=== PATIENT | female | born 1930 | race Caucasian/White ===

== ENCOUNTER 2016-10-15 09:39 | Emergency (ER) | payer OTHER ==
--- NOTE | 2016-10-15 14:29 | ED ORDER SUMMARY ---
..... Patient: JESSA ADLER OrderSheet [facility] VisitID: [id number] [place] [address] 85y, F Registration Date/Time: 10/15/2016 ORDER SHEET Weight: 46.8 kg (measured) Allergies: No Known Drug Allergy GENERAL ORDERS: CBC w Diff Urgent (10:10/15/2016 Sanket Latif) (Ack 10:36 TBergley) (10:36 TBergley) CMP Urgent (10:10/15/2016 Sanket Latif) (Ack 10:36 TBergley) (10:36 TBergley) UA-Culture if indicated Urgent (:10/15/2016 Sanket Latif) (Ack 10:36 TBergley) (10:36 TBergley) Amylase Urgent (10:10/15/2016 Sanket Latif) (Ack 10:36 TBergley) (10:36 TBergley) Lipase Urgent (10:10/15/2016 Sanket Latif) (Ack 10:36 TBergley) (10:36 TBergley) MEDICATION ORDERS: IV FLUIDS: IV NS : initial bolus none -, then 1000 mL/hr for X1 (NOW) (10:30 10/15/2016 Sanket Latif) (10:49 LSullivan R.N.) Famotidine IV 20 mg/50mL (NOW) (10:10/15/2016 Sanket Latif) (10:49 LSullivan R.N.) Demerol IV 25 mg (HIGH ALERT MEDICATION, NOW) (12:37 10/15/2016 Sanket Latif) (12:51 LSullivan R.N.) Zofran IV 4 mg (NOW) (12:37 10/15/2016 Sanket Latif) (12:50 LSullivan R.N.) ORDER SHEET NOTES: This document has not been locked and should not be saved in the medical record.
--- NOTE | 2016-10-15 14:29 | ED CLINICAL REPORT ---
Clinical Report - Physicians/Mid Levels [facility] [address] [place] [address] 10/15/2016 9:40 Patient: JESSA ADLER *This is a preliminary document and is subject to change Time Seen: 09:57; initial patient contact. Arrived- By private vehicle. Historian- patient. HISTORY OF PRESENT ILLNESS Chief Complaint: ABDOMINAL PAIN. At its maximum, severity described as moderate. When seen in the E.D., severity described as moderate. This started about 5 days ago and is still present. It is described as sharp and it is described as located in the upper abdomen and radiating to the upper back. The patient has had nausea, loss of appetite and vomiting. No diarrhea. Similar symptoms previously: Many times. Recent medical care: Not recently seen/assessed. REVIEW OF SYSTEMS No constipation, pain with urination, urinary frequency, fever or chills. PAST HISTORY Abdominal Pain. Pancreatitis. Hypertension. Atrial Fibrillation. SURGERIES: Femoral vein bypass. Tonsillectomy. SOCIAL HISTORY Current every day smoker. No alcohol use. ADDITIONAL NOTES The nursing notes have been reviewed with agreement regarding the chief complaint, PMH and patient medications and allergies. PHYSICAL EXAM Vital Signs: 10/15/2016 10:01 BP: 157/81. HR: 104. RR: 19. O2 saturation: 99%. Temp: 97.8 F. Pain level now: 8/10. Have been reviewed. Hypertensive. Tachycardic. Respiratory rate normal. Temperature normal. Oxygen saturation normal. Appearance: Alert. Oriented X3. No acute distress. Eyes: No scleral icterus. ENT: Dry mucous membranes present. CVS: Normal heart rate and rhythm. Heart sounds normal. Respiratory: No respiratory distress. Breath sounds normal. Abdomen: Soft. Moderate tenderness in the upper abdomen with guarding present. No rebound tenderness or Dorsey's sign present. Bowel sounds normal. No organomegaly. No mass. Back: Normal inspection. No CVA tenderness. Skin: Skin warm and dry. Normal skin color. No rash. Extremities: No lower extremity edema. Neuro: Oriented X 3. LABS, X-RAYS, AND EKG Laboratory Tests: UA-Culture if indicated: (ZORAIDA: 10/15/2016 10:24) ( [facility] 10/15/2016 11:08) Final results Test Result Flag Units (Reference) URINE COLOR YELLOW URINE APPEARANCE CLEAR URINE GLUCOSE NEGATIVE (NEGATIVE) URINE BILIRUBIN NEGATIVE (NEGATIVE) URINE KETONE NEGATIVE (NEGATIVE) URINE SPECIFIC GRAVITY 1.020 (1.010-1.030) URINE PH 5.5 (5.0-8.0) URINE PROTEIN 1+ (NEGATIVE) URINE UROBILINOGEN 0.2 EU/dL (0.2-1.0) URINE NITRITE NEGATIVE (NEGATIVE) URINE BLOOD TRACE-INTACT (NEGATIVE) URINE LEUK ESTERASE TRACE (NEGATIVE) URINE RBC 1-3 rbc/hpf (0-1) URINE WBC 0-1 wbc/hpf (0-1) URINE EPITHELIAL CELLS 1-3 EPI/hpf (0-5) URINE BACTERIA NONE SEEN (NONE SEEN) URINE COMMENT CULTURE INDICATED This is a corrected result 10/15/16 1108:URINE COMMENT previously reported as: CULT NOT INDICATEDURINE CULTURES ARE SET-UP BASED ON THE FOLLOWING CRITERIA:POSITIVE NITRITEPOSITIVE LEUKOCYTE ESTERASEGREATER THAN 10 WHITE BLOOD CELLSMODERATE (2+) OR GREATER BACTERIA CBC w Diff: (ZORAIDA: 10/15/2016 10:24) ( [facility] 10/15/2016 10:42) Final results Test Result Flag Units (Reference) WHITE BLOOD COUNT 13.6 H K/uL (4.5-11.5) RED BLOOD COUNT 5.09 M/uL (4.00-5.20) HEMOGLOBIN 15.2 gm/dL (12.0-16.0) HEMATOCRIT 43.7 % (36.0-46.0) MEAN CELL VOLUME 86 fL (80-100) MEAN CORPUSCULAR HGB 30 pg (26-34) MEAN CORPUSCULAR HGB CONC 35 g/dL (31-37) RED CELL DISTRIBUTION WIDTH 15.2 H % (11.6-14.8) PLATELET COUNT 221 K/uL (150-400) NEUTROPHIL % 82.3 H % (50-75) LYMPH % 11.4 L % (25-40) MONO % 5.8 % (3-14) EOSINOPHIL % 0.2 % (0-4) BASOPHIL % 0.3 % (0-2) CMP: (ZORAIDA: 10/15/2016 10:24) ( MsgRcvd 10/15/2016 10:52) Final results Test Result Flag Units (Reference) GLUCOSE 115 H mg/dL (70-110) BUN 25 H mg/dL (7-18) CREATININE 0.8 mg/dL (0.6-1.3) Estimated GFR >60 mL/min Estimated GFR- >60 mL/min Note: Persistent reduction over 3 months in eGFR<60 mL/min/1.73 m2 defines CKD. Patients with eGFR values>=60 mL/min/1.73 m2 may also have CKD if evidence ofpersistent proteinuria. Additional information may be foundat [email or web address].org. SODIUM 137 mmol/L (136-145) POTASSIUM 3.6 mmol/L (3.5-5.1) CHLORIDE 98 mmol/L (98-107) CARBON DIOXIDE 25 mmol/L (21-32) CALCIUM 9.5 mg/dL (8.5-10.1) TOTAL PROTEIN 8.2 g/dL (6.4-8.2) ALBUMIN 4.2 g/dL (3.3-5.0) BILIRUBIN, TOTAL 0.5 mg/dL (0.0-1.0) ALKALINE PHOSPHATASE 97 U/L (46-116) AST (SGOT) 21 U/L (15-37) ALT (SGPT) 21 U/L (12-78) LIPASE 382 U/L (73-393) AMYLASE 67 U/L (25-115) . PROGRESS AND PROCEDURES Discussed case with health care provider (Dr. Lopez at [facility] ER. Will transfer due to the fact LFT's, Amylase, and Lipase are normal, but WBC 13.6 w/ L shift.). Health care provider will see patient in ED. Disposition: Benefits, risks and alternatives to transfer explained to patient. Transferred to [facility]. CLINICAL IMPRESSION Acute epigastric abdominal pain of unknown cause. Mild leukocytosis. Armando Gonzalez Dr.
--- NOTE | 2016-10-15 14:29 | ED NURSING NOTES ---
Clinical Report - [facility]es [facility] [place] [address] 10/15/2016 9:40 Patient: JESSA ADLER TRIAGE Triage time 10:01. Acuity: LEVEL 3. Chief Complaint: ABDOMINAL PAIN, NAUSEA, VOMITING and DIARRHEA and (Pt thinks it's her pancreatitis acting up). Alert. --10:13 Petrona Prescott R.N. 10:01 10/15/16. BP: 157/81. HR: 104. RR: 19. O2 saturation: 99%. Temp: 97.8 F. Pain level now: 03/18. --10:13 Petrona Prescott R.N. Weight: 46.8 kg measured. Height/Length: 64 inches Per Patient. BMI: 17.7. --10:02 Petrona Prescott R.N. Medications Oxycodone-Acetaminophen Oral 5/325 mg, 3x a day as needed. --10:05 Petrona Prescott R.N. Lomotil Oral, as needed. --10:05 Petrona Prescott R.N. Digoxin Oral 0.25 mg, daily. --10:06 Petrona Prescott R.N. Lisinopril Oral. Lovastatin Oral. --10:06 Petrona Prescott R.N. Metoprolol Tartrate Oral. --10:06 Petrona Prescott R.N. Allergies No Known Drug Allergy. --10:07 Petrona Prescott R.N. History Arrived by private vehicle. Historian: patient. Accompanied by family and daughter. Primary physician (Clifford). Onset. (5 days ago). PAST MEDICAL HX: ( weight loss of 10 lbs over past 2 years). SOCIAL HX: Heavy tobacco smoker (cigarette)- less than 1 pack per day. No alcohol use or drug use. No recent travel. SELF HARM ASSESSMENT: A self harm assessment was performed. The patient answered "yes" to the question "Have you recently felt down, depressed, or hopeless?". FUNCTIONAL ASSESSMENT: Functional assessment: no impairments noted. ABUSE ASSESSMENT: Abuse assessment: ("yes") The patient was asked "Do you feel safe in your home?". --10:13 Petrona Prescott R.N. PROBLEMS: Abdominal Pain. Pancreatitis. Hypertension. --10:09 Petrona Prescott R.N. Atrial Fibrillation. --12:11 Petrona Prescott R.N. ADDITIONAL SURGERIES: Femoral vein bypass. Tonsillectomy. --10:10 Petrona Prescott R.N. Interventions ID band on patient. To room. --10:13 Petrona Prescott R.N. PHYSICAL ASSESSMENT 10:13 10/15/16. Patient gowned. GENERAL / NEURO / PSYCH: Alert. Oriented X 4. RESPIRATORY: Respirations not labored. Breath sounds within normal limits. --10:13 Petrona Prescott R.N. NURSING PROGRESS NOTES 10:10/15/16. Head of bed elevated. Patient identifiers checked. Call light placed in reach. Bed placed in lowest position. Patient ready for evaluation- chart flagged. --10:13 Petrona Prescott R.N. 10:34 10/15/2016 Site #1 started via IV in the right forearm with an 20g angiocath, with aseptic technique and good blood return; one attempt. Blood drawn: rainbow set. Labeled in the presence of the patient and sent to the lab. --10:49 Petrona Prescott R.N. 10:49 10/15/2016 Started bag #1 1000 mL IV Fluids IV NS (Saline); at 1000 mL/hr via site #1 via IV pump. Confirmed 5 rights. IV patency established. IV site checked: no pain, redness, or swelling. IV flushed thoroughly pre- and post-medication administration. --10:49 Petrona Prescott R.N. 10:49 10/15/2016 Started 20 mg of Famotidine IVPB in bag #1 100 mL; at 100 mL/hr over 30 minute(s) via site #1; Confirmed 5 rights. --10:49 Petrona Prescott R.N. 12:07 10/15/2016 Famotidine IVPB Discontinued: bag #1 completed. Total amount infused: 50 mL. IV patency established. IV site checked: no pain, redness, or swelling. IV flushed thoroughly. --12:07 Kathy Jiménez R.N. 12:45 10/15/2016 Zofran (Ondansetron HCl) IVP 4 mg given over 1 minute(s) via site #1. Allergies verified and confirmed 5 rights. --12:50 Petrona Prescott R.N. 12:51 10/15/2016 Demerol (Meperidine HCl) IVP 25 mg given over 2 minute(s) via site #1. Allergies verified and confirmed 5 rights. --12:51 Petrona Prescott R.N. 14:11 10/15/16. ( Pt ambulating in room, has gotten dressed.). --14:11 Petrona Prescott R.N. 12:00 10/15/16. BP: 161/79. HR: 85. RR: 18. O2 saturation: 100%. Pain level now: 2/10. --15:06 Petrona Prescott R.N. 12:30 10/15/16. BP: 158/86. HR: 90. RR: 18. O2 saturation: 100%. --15:06 Petrona Prescott R.N. 15:06 10/15/16. BP: 152/73. HR: 83. RR: 18. O2 saturation: 100%. Pain level now: 0/10. --15:07 Petrona Prescott R.N. 12:40 10/15/2016 IV Fluids IV NS Discontinued: bag #1 completed. Total amount infused: 1000 mL. IV patency established. IV site checked: no pain, redness, or swelling. IV flushed thoroughly. --16:16 Petrona Prescott R.N. 15:40 10/15/2016 Site #1 removed upon discharge. Bandage applied. --15:56 Petrona Prescott R.N. DISPOSITION / DISCHARGE Departure time: 1540. The patient left the Emergency Department against medical advice and without completion of treatment. The patient appears to be alert and oriented x4. She stated is leaving the ED due to personal reasons and the long waiting time. Prior to leaving the ED, she was advised to stay for completion of treatment. She was informed of the risks of leaving and verbalized understanding of these risks. Patient signed form prior to leaving. She left the Emergency Department via private vehicle. ( Pt tired of waiting since our CT is down, did not want ambulance transfer to [facility] for scan, or transfer. Pt cooperative, but anxious about paying for an ambulance "just to go to [facility]". Calling daughter to get a ride home, encouraged pt to have daughter take pt to [facility] ER for further treatment and CT. She understands.). --15:55 Petrona Prescott R.N. Locked/Released at 10/15/2016 16:16 by Petrona Prescott R.N.
--- NOTE | 2016-10-15 14:29 | ED ORDER SUMMARY ---
..... Patient: JESSA ADLER OrderSheet [facility] VisitID: [id number] [place] [address] 85y, F Registration Date/Time: 10/15/2016 ORDER SHEET Weight: 46.8 kg (measured) Allergies: No Known Drug Allergy GENERAL ORDERS: CBC w Diff Urgent (10:10/15/2016 Sanket Latif) (Ack 10:36 TBergley) (10:36 TBergley) CMP Urgent (10:10/15/2016 Sanket Latif) (Ack 10:36 TBergley) (10:36 TBergley) UA-Culture if indicated Urgent (:10/15/2016 Sanket Latif) (Ack 10:36 TBergley) (10:36 TBergley) Amylase Urgent (10:10/15/2016 Sanket Latif) (Ack 10:36 TBergley) (10:36 TBergley) Lipase Urgent (10:10/15/2016 Sanket Latif) (Ack 10:36 TBergley) (10:36 TBergley) MEDICATION ORDERS: IV FLUIDS: IV NS : initial bolus none -, then 1000 mL/hr for X1 (NOW) (10:30 10/15/2016 Sanket Latif) (10:49 LSullivan R.N.) Famotidine IV 20 mg/50mL (NOW) (10:10/15/2016 Sanket Latif) (10:49 LSullivan R.N.) Demerol IV 25 mg (HIGH ALERT MEDICATION, NOW) (12:37 10/15/2016 Sanket Latif) (12:51 LSullivan R.N.) Zofran IV 4 mg (NOW) (12:37 10/15/2016 Sanket Latif) (12:50 LSullivan R.N.) ORDER SHEET NOTES: This document has not been locked and should not be saved in the medical record.
--- NOTE | 2016-10-15 22:06 | ED MED RECONCILIATION SUMMARY ---
Patient: JESSA ADLER Medication Reconciliation Report [facility] VisitID: [id number] [place] [address] 85y, F Registration Date/Time: 10/15/2016 Weight: 46.8 kg Height/Length: 64 in. BMI: 17.7 ALLERGIES: No Known Drug Allergy The patient's Home Medications are listed below: THE FOLLOWING MEDICATIONS NEED TO BE RECONCILED: Digoxin Oral 0.25 mg, daily Lisinopril Oral Lomotil Oral Lovastatin Oral Metoprolol Tartrate Oral Oxycodone-Acetaminophen Oral 5/325 mg, 3x a day The source(s) of the original Home Medication information: Not obtained. The following Medications were given to the patient in the Emergency Department: IV NS IV Fluids bolus 0, then 1000 mL/hr, administered: 10/15/2016 10:49:00 AM Famotidine [IVPB] IVPB bolus 0, then 20 mg 100 mL/hr, administered: 10/15/2016 10:49:00 AM Zofran [IVP] IVP 4 mg, administered: 10/15/2016 12:45:00 PM Demerol [IVP] IVP 25 mg, administered: 10/15/2016 12:51:00 PM The following Medications were prescribed to the patient: None.
--- NOTE | 2016-10-15 22:06 | ED MAR SUMMARY ---
..... Medication Administration Record [facility] [address] [place] [address] Patient: JESSA ADLER Visit ID: [id number] 85y, F Weight: 46.8 kg Height/Length: 64 in BMI: 17.7 ALLERGIES: No Known Drug Allergy Start 10:49 10/15/2016 Petrona Prescott R.N., Stop 12:40 10/15/2016 Petrona Prescott R.N. Medication Administered: IV NS (SALINE), Dose: IV Fluids, Rate: 1000 mL/hr, Dispensed: 1000 mL bag, Site: #1 right forearm. Medication Ordered: IV NS : initial bolus none -, then 1000 mL/hr for X1 (NOW). Start 10:49 10/15/2016 Petrona Prescott R.N., Stop 12:07 10/15/2016 Kathy Jiménez R.N. Medication Administered: FAMOTIDINE [IVPB], Dose: 20 mg IVPB over 30 minute(s), Rate: 100 mL/hr, Dispensed: 100 mL bag, Site: #1 right forearm. Medication Ordered: Famotidine IV 20 mg/50mL (NOW). Given 12:45 10/15/2016 Petrona Prescott R.N. Medication Administered: ZOFRAN [IVP] (ONDANSETRON HCL), Dose: 4 mg IVP over 1 minute(s), Site: #1 right forearm. Medication Ordered: Zofran IV 4 mg (NOW). Given 12:51 10/15/2016 Petrona Prescott R.N. Medication Administered: DEMEROL [IVP] (MEPERIDINE HCL), Dose: 25 mg IVP over 2 minute(s), Site: #1 right forearm. Medication Ordered: Demerol IV 25 mg (HIGH ALERT MEDICATION, NOW).
--- NOTE | 2016-10-15 22:06 | ED DISCHARGE INSTRUCTIONS ---
Patient: JESSA ADLER ANN General Instructions [facility] VisitID: [id number] [address] [place] [address] 85y, F Registration Date/Time: 10/15/2016 Acute epigastric abdominal pain of unknown cause. Mild leukocytosis. (Electronically signed by Armando Gonzalez Dr. 10/15/2016 22:06)
--- NOTE | 2016-10-15 22:06 | ED MED RECONCILIATION SUMMARY ---
Patient: JESSA ADLER Medication Reconciliation Report [facility] VisitID: [id number] [place] [address] 85y, F Registration Date/Time: 10/15/2016 Weight: 46.8 kg Height/Length: 64 in. BMI: 17.7 ALLERGIES: No Known Drug Allergy The patient's Home Medications are listed below: THE FOLLOWING MEDICATIONS NEED TO BE RECONCILED: Digoxin Oral 0.25 mg, daily Lisinopril Oral Lomotil Oral Lovastatin Oral Metoprolol Tartrate Oral Oxycodone-Acetaminophen Oral 5/325 mg, 3x a day The source(s) of the original Home Medication information: Not obtained. The following Medications were given to the patient in the Emergency Department: IV NS IV Fluids bolus 0, then 1000 mL/hr, administered: 10/15/2016 10:49:00 AM Famotidine [IVPB] IVPB bolus 0, then 20 mg 100 mL/hr, administered: 10/15/2016 10:49:00 AM Zofran [IVP] IVP 4 mg, administered: 10/15/2016 12:45:00 PM Demerol [IVP] IVP 25 mg, administered: 10/15/2016 12:51:00 PM The following Medications were prescribed to the patient: None.
--- NOTE | 2016-10-15 22:06 | ED DISCHARGE INSTRUCTIONS ---
Patient: JESSA ADLER ANN General Instructions [facility] VisitID: [id number] [address] [place] [address] 85y, F Registration Date/Time: 10/15/2016 Acute epigastric abdominal pain of unknown cause. Mild leukocytosis. (Electronically signed by Armando Gonzalez Dr. 10/15/2016 22:06)
--- NOTE | 2016-10-15 22:06 | ED MAR SUMMARY ---
..... Medication Administration Record [facility] [address] [place] [address] Patient: JESSA ADLER Visit ID: [id number] 85y, F Weight: 46.8 kg Height/Length: 64 in BMI: 17.7 ALLERGIES: No Known Drug Allergy Start 10:49 10/15/2016 Petrona Prescott R.N., Stop 12:40 10/15/2016 Petrona Prescott R.N. Medication Administered: IV NS (SALINE), Dose: IV Fluids, Rate: 1000 mL/hr, Dispensed: 1000 mL bag, Site: #1 right forearm. Medication Ordered: IV NS : initial bolus none -, then 1000 mL/hr for X1 (NOW). Start 10:49 10/15/2016 Petrona Prescott R.N., Stop 12:07 10/15/2016 Kathy Jiménez R.N. Medication Administered: FAMOTIDINE [IVPB], Dose: 20 mg IVPB over 30 minute(s), Rate: 100 mL/hr, Dispensed: 100 mL bag, Site: #1 right forearm. Medication Ordered: Famotidine IV 20 mg/50mL (NOW). Given 12:45 10/15/2016 Petrona Prescott R.N. Medication Administered: ZOFRAN [IVP] (ONDANSETRON HCL), Dose: 4 mg IVP over 1 minute(s), Site: #1 right forearm. Medication Ordered: Zofran IV 4 mg (NOW). Given 12:51 10/15/2016 Petrona Prescott R.N. Medication Administered: DEMEROL [IVP] (MEPERIDINE HCL), Dose: 25 mg IVP over 2 minute(s), Site: #1 right forearm. Medication Ordered: Demerol IV 25 mg (HIGH ALERT MEDICATION, NOW).
== END 2016-10-15 15:40 | disposition left against medical advice (07) ==
LOC: ED SRH 09:39
DX: R10.13 Epigastric pain (principal); D72.829 Elevated white blood cell count, unspecified; I10 Essential (primary) hypertension; F17.210 Nicotine dependence, cigarettes, uncomplicated; Z79.899 Other long term (current) drug therapy
CPT/HCPCS: 90004; 90100; 90469; 92235; 92530; 95059

== ENCOUNTER 2016-11-15 09:52 | Emergency (ER) | payer OTHER ==
--- NOTE | 2016-11-15 13:01 | DIAGNOSTIC IMAGING REPORT ---
PROCEDURE: CT ABDOMEN/PELVIS W/O CONTRAST INDICATION: DIARRHEA, nausea, vomiting, low abdominal pain, leukocytosis. TECHNIQUE: Axial CT images were obtained through the abdomen and pelvis without IV contrast. Coronal and sagittal reformations were created. COMPARISON: 04/20/2016 FINDINGS: Clear lung bases. Normal sized heart. Moderate mitral annular and coronary artery calcification. Very small hiatal hernia. Tiny central cysts, and punctate granuloma in the right lobe of the liver. There is new perihepatic ascites towards the dome. There are punctate calcifications in the head and uncinate process of the diminutive pancreas consistent with chronic pancreatitis. There is heavy atherosclerosis of the abdominal aorta and its branches which probably has caused right renal atrophy. There is a left renal cyst. No collecting system calcifications or hydronephrosis. There is an air-fluid level in an otherwise normal appearing stomach. The distal duodenum and proximal jejunum demonstrates diffuse circumferential mural thickening. There are no pathologically dilated small bowel loops, but small and large bowel is diffusely fluid-filled containing air fluid levels. Small amount of free fluid layers dependently in the pelvis. The appendix is present in normal-caliber. No discrete focus of inflammation. No discrete transition point to suggest obstruction. There is moderate mesenteric congestion in the right lower quadrant. The gallbladder, adrenal glands, and spleen appear normal. 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 The uterus is retroverted. The bladder is decompressed. No bulky adenopathy or suspicious pelvic mass. Osseous structures are intact. IMPRESSION: 1. Liquid stool throughout small and large bowel loops. A few of the more proximal small bowel loops demonstrate wall thickening. The right lower quadrant mesentery appears congested and there is free pelvic and perihepatic fluid. Findings suggest severe gastroenteritis, likely infectious/inflammatory, although given heavy atherosclerosis, ischemic bowel is possible, less likely given nondilated bowel loops. No evidence for bowel obstruction. 2. Evidence of chronic pancreatitis. No acute pancreatitis. 3. 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 4. Discussed with Dr. Maki in the emergency room. All CT scans at this facility use dose modulation, iterative reconstruction, and/or weight-based dosing when appropriate to reduce radiation dose to as low as reasonably achievable.
--- NOTE | 2016-11-15 13:03 | DIAGNOSTIC IMAGING REPORT ---
PROCEDURE: XR HAND 3 OR 4 VIEWS - LEFT INDICATION: TRAUMA/INJURY TECHNIQUE: Four views of the left hand. COMPARISON: None. FINDINGS: Periarticular osteopenia. Minimally displaced longitudinally oriented oblique fracture of the third metacarpal diaphysis. There is medial subluxation at the second DIP joint with joint space loss suggestive of chronic arthritic change. No unusual soft tissue calcifications or radiodense foreign bodies. IMPRESSION: 1. Minimally displaced third metacarpal fracture. 2. Periarticular osteopenia. 3. 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 Correlate clinically with loss of range of motion.
--- NOTE | 2016-11-15 14:02 | ED ORDER SUMMARY ---
..... Patient: JESSA ADLER OrderSheet [facility] VisitID: [id number] Sharon Brannon [place], [place] [id number] 86y, F Registration Date/Time: 11/15/2016 ORDER SHEET Weight: 43.0 kg (stated) Allergies: No Known Drug Allergy GENERAL ORDERS: Gray Tender (Continuous) (a fib) (10:11/15/2016 Edmar Latif) (Ack 10:12 TBergley) (10:15 SReitz R.N.) CBC w Diff Urgent (10:11/15/2016 Edmar Latif) (Ack 10:11 TBergley) (11:10 RMarsden R.N.) CMP Urgent (10:11/15/2016 Edmar Latif) (Ack 10:11 TBergley) (11:10 RMarsden R.N.) UA-Culture if indicated Urgent (10:11/15/2016 Edmar Latif) (Ack 10:11 TBergley) (11:10 RMarsden R.N.) PT with INR Urgent (10:11/15/2016 Edmar Latif) (Ack 10:11 TBergley) (11:10 RMarsden R.N.) TSH Urgent (10:11/15/2016 Edmar Latif) (Ack 10:11 TBergley) (11:10 RMarsden R.N.) Pulse oximeter (10:11/15/2016 Edmar Latif) (Ack 10:12 TBergley) (10:15 SReitz R.N.) Hand 3 or 4V Left Urgent (10:11/15/2016 Edmar Latif) (Ack 10:16 TBergley) (12:04 Kenisha) CT Abd/Pel w Cont (No) (N/A) (hx pancreatitis) Urgent (10:14 11/15/2016 Edmar Latif) (Ack 10:16 TBergley) (Cancelled: Duplicate Order11:23 TBergley) Lipase Urgent (10:11/15/2016 Edmar Latif) (Ack 10:16 TBergley) (11:10 RMarsden R.N.) Magnesium Urgent (10:15 11/15/2016 Edmar Latif) (Ack 10:16 TBergley) (11:10 RMarsden R.N.) CT Abd/Pel wo Cont Urgent (11:22 11/15/2016 TBergley written order Edmar Latif) (Ack 11:24 TBergley) (12:04 Kenisha) - (PO challenge (food or drink)) (13:01 11/15/2016 Edmar Latif) (Ack 13:07 TBergley) (13:16 RMarsden R.N.) Splint (UE) (Left) (Sugar Tong) (Sugar Tong) (13:02 11/15/2016 Edmar Latif) (Ack 13:07 TBergley) (14:55 RMarsden R.N.) Sling - arm (13:02 11/15/2016 Edmar Latif) (Ack 13:07 TBergley) (14:55 RMarsden R.N.) MEDICATION ORDERS: IV FLUIDS: Metoprolol IV 5 mg (HIGH ALERT MEDICATION, NOW) (10:08 11/15/2016 Edmar Latif) (Ack 10:15 SReitz R.N.) (10:44 RMarsden R.N.) IV Saline Lock (10:08 11/15/2016 Edmar Latif) (Ack 10:15 SReitz R.N.) (10:32 RMarsden R.N.) Morphine IV 4 mg (HIGH ALERT MEDICATION, NOW) (10:15 11/15/2016 Edmar Latif) (Ack 10:44 RMarsden R.N.) (11:06 RMarsden R.N.) IV NS : initial bolus 500 mL (1000 mL/hr), then none - for X1 (NOW) (10:36 11/15/2016 Edmar Latif) (Ack 10:44 RMarsden R.N.) (11:08 RMarsden R.N.) Zofran IV 4 mg (NOW) (11:08 11/15/2016 RMhernandez R.N. verbal order read back to Edmar Latif) (11:09 Bredna Diaz) Morphine IV 4 mg (HIGH ALERT MEDICATION, NOW) (13:21 11/15/2016 Edmar Latif) ([facility] 13:24 TCleandro R.N.) (13:30 Robert R.N.) ORDER SHEET NOTES: [Electronically signed by Delmy Orta R.N. (15:25 11/15/2016)] [Electronically signed by Chang Maki Dr. (05:20 11/18/2016)] [Electronically locked/signed by Delmy Orta R.N. (15:25 11/15/2016)]
--- NOTE | 2016-11-15 14:02 | ED ORDER SUMMARY ---
..... Patient: JESSA ADLER OrderSheet [facility] VisitID: [id number] Sharon Brannon [place], [place] [id number] 86y, F Registration Date/Time: 11/15/2016 ORDER SHEET Weight: 43.0 kg (stated) Allergies: No Known Drug Allergy GENERAL ORDERS: Dinkey Operator Slate (Continuous) (a fib) (10:11/15/2016 Edmar Latif) (Ack 10:12 TBergley) (10:15 SReitz R.N.) CBC w Diff Urgent (10:11/15/2016 Edmar Latif) (Ack 10:11 TBergley) (11:10 RMarsden R.N.) CMP Urgent (10:11/15/2016 Edmar Latif) (Ack 10:11 TBergley) (11:10 RMarsden R.N.) UA-Culture if indicated Urgent (10:11/15/2016 Edmar Latif) (Ack 10:11 TBergley) (11:10 RMarsden R.N.) PT with INR Urgent (10:11/15/2016 Edmar Latif) (Ack 10:11 TBergley) (11:10 RMarsden R.N.) TSH Urgent (10:11/15/2016 Edmar Latif) (Ack 10:11 TBergley) (11:10 RMarsden R.N.) Pulse oximeter (10:11/15/2016 Edmar Latif) (Ack 10:12 TBergley) (10:15 SReitz R.N.) Hand 3 or 4V Left Urgent (10:11/15/2016 Edmar Latif) (Ack 10:16 TBergley) (12:04 Kenisha) CT Abd/Pel w Cont (No) (N/A) (hx pancreatitis) Urgent (10:14 11/15/2016 Edmar Latif) (Ack 10:16 TBergley) (Cancelled: Duplicate Order11:23 TBergley) Lipase Urgent (10:11/15/2016 Edmar Latif) (Ack 10:16 TBergley) (11:10 RMarsden R.N.) Magnesium Urgent (10:15 11/15/2016 Edmar Latif) (Ack 10:16 TBergley) (11:10 RMarsden R.N.) CT Abd/Pel wo Cont Urgent (11:22 11/15/2016 TBergley written order Edmar Latif) (Ack 11:24 TBergley) (12:04 Kenisha) - (PO challenge (food or drink)) (13:01 11/15/2016 Edmar Latif) (Ack 13:07 TBergley) (13:16 RMarsden R.N.) Splint (UE) (Left) (Sugar Tong) (Sugar Tong) (13:02 11/15/2016 Edmar Latif) (Ack 13:07 TBergley) (14:55 RMarsden R.N.) Sling - arm (13:02 11/15/2016 Edmar Latif) (Ack 13:07 TBergley) (14:55 RMarsden R.N.) MEDICATION ORDERS: IV FLUIDS: Metoprolol IV 5 mg (HIGH ALERT MEDICATION, NOW) (10:08 11/15/2016 Edmar Latif) (Ack 10:15 SReitz R.N.) (10:44 RMarsden R.N.) IV Saline Lock (10:08 11/15/2016 Edmar Latif) (Ack 10:15 SReitz R.N.) (10:32 RMarsden R.N.) Morphine IV 4 mg (HIGH ALERT MEDICATION, NOW) (10:15 11/15/2016 Edmar Latif) (Ack 10:44 RMarsden R.N.) (11:06 RMarsden R.N.) IV NS : initial bolus 500 mL (1000 mL/hr), then none - for X1 (NOW) (10:36 11/15/2016 Edmar Latif) (Ack 10:44 RMarsden R.N.) (11:08 RMarsden R.N.) Zofran IV 4 mg (NOW) (11:08 11/15/2016 RMhernandez R.N. verbal order read back to Edmar Latif) (11:09 Brenda Diaz) Morphine IV 4 mg (HIGH ALERT MEDICATION, NOW) (13:21 11/15/2016 Edmar Latif) ([facility] 13:24 TCleandro R.N.) (13:30 Robert R.N.) ORDER SHEET NOTES: [Electronically signed by Delmy Orta R.N. (15:25 11/15/2016)] [Electronically signed by Chang Maki Dr. (05:20 11/18/2016)] [Electronically locked/signed by Delmy rOta R.N. (15:25 11/15/2016)]
--- NOTE | 2016-11-15 14:02 | ED NURSING NOTES ---
Clinical Report - Nurses [facility] [address] [place] [address] 11/15/2016 9:56 Patient: JESSA ADLER TRIAGE Triage time 09:55. Acuity: LEVEL 2. Chief Complaint: ABDOMINAL PAIN. 10:17 11/15/16. Alert. SEPSIS SCREEN: Sepsis Screen. Negative (no infection suspected/documented). ALLY COMA SCORE: Ally Coma Scale: 15- eyes open spontaneously (4); best verbal response- oriented x 4 (5); best motor response- obeys commands (6). --10:17 Delmy Orta R.N. 09:59 11/15/16. BP: 125/66. HR: 126. RR: 14. O2 saturation: 92% on room air. Temp: 97.4 F. --10:17 Delmy Orta R.N. Weight: 43 kg stated. Height/Length: 64 inches Per Patient. BMI: 16.3. --10:16 Delmy Orta R.N. Medications Digoxin Oral 0.25 mg, daily. Lisinopril Oral. Lomotil Oral, as needed. Lovastatin Oral. Metoprolol Tartrate Oral. Oxycodone-Acetaminophen Oral 5/325 mg, 3x a day as needed. --10:03 Delmy Orta R.N. Allergies No Known Drug Allergy. --10:03 Delmy Orta R.N. History Arrived by EMS. Historian: patient. Primary physician (Dr Hurtado). Onset. (Patient states pain "started a couple days ago. It builds up and gets worse."). She has had nausea, vomiting and diarrhea. ( Patient states "I tried to eat some scrambled eggs yesterday but couldnt get them down. My indigestion is really bad." Patient reports hand pain. She states, "I think I fell on my hand and it really hurts"). Last oral intake by patient was two days ago. 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 PAST MEDICAL HX: Immunizations: up-to-date. Denies current . SOCIAL HX: Light tobacco smoker- less than 1/2 a pack per day. No alcohol use or drug use. FUNCTIONAL ASSESSMENT: Functional assessment: no impairments noted. LEARNING NEEDS ASSESSMENT: The learning needs assessment revealed no barriers. ABUSE ASSESSMENT: Abuse assessment: The patient was asked "Do you feel safe in your home?" Abuse denied by patient. FALL RISK ASSESSMENT: Fall risk assessment completed. Risk factors identified include patient history of fall. Fall interventions initiated. Patient placed on stretcher. Side rails up x2. Brakes on Bed in low position. Patient visible from nurses' station and identified as a fall risk by ID band. Call light in reach of patient. Instructed not to get up without assistance. NUTRITIONAL RISK ASSESSMENT: The patient has recently had decreased intake. The nutritional assessment was not completed due to the patient's condition. Nutritional risk assessment notes: Patient reports she has had decreased food intake due to pancreatitis. SKIN INTEGRITY ASSESSMENT: Skin integrity risk assessment completed. No skin integrity risk identified. --10:17 Delmy Orta R.N. PROBLEMS: Leukocytosis. Atrial Fibrillation. Abdominal Pain. Pancreatitis. Hypertension. --10:03 Delmy Orta R.N. ADDITIONAL SURGERIES: Femoral vein bypass. Tonsillectomy. --10:03 Delmy Orta R.N. Interventions ID band on patient. To treatment room. --10:17 Delmy Orta R.N. PHYSICAL ASSESSMENT 10:11/15/16. To room via stretcher. GENERAL / NEURO / PSYCH: Alert. Oriented X 4. HEENT: Mucous membranes are pink. RESPIRATORY: Respirations not labored. CVS: Cardiac rhythm: atrial fibrillation. Capillary refill less than 2 seconds. GI / : Abdomen soft. Abdominal tenderness in the upper abdomen. SKIN: Skin is warm and dry. --10:19 Delmy Orta R.N. NURSING PROGRESS NOTES 10:11/15/16. Two patient identifiers checked. Call light placed in reach. Side rails up x 2. Bed placed in lowest position. Brakes of bed on. --10:19 Delmy Orta R.N. 10:32 11/15/2016 Site #1 started prior to arrival by EMS via IV in the left antecubital space with an 20g angiocath; one attempt. Blood drawn: rainbow set. Labeled in the presence of the patient and sent to the lab. Saline lock flushed with 5 mL saline. --10:32 Delmy Orta R.N. 10:43 11/15/2016 Started bag #1 1000 mL IV Fluids IV NS (Saline); at 999 mL/hr over 30 minute(s) via site #1 via IV pump. Allergies verified and confirmed 5 rights. IV patency established. IV site checked: no pain, redness, or swelling. IV flushed thoroughly pre- and post-medication administration. --11:08 Delmy Orta R.N. 10:44 11/15/2016 Metoprolol (Metoprolol Tartrate) IVP 5 mg given over 5 minute(s) via site #1. Allergies verified and confirmed 5 rights. IV patency established. IV site checked: no pain, redness, or swelling. IV flushed thoroughly pre- and post-medication administration. IVP given by RN. --10:44 Delmy Orta R.N. 10:45 11/15/2016 Morphine IVP 2 mg given over 1 minute(s) via site #1. Allergies verified, confirmed 5 rights and sedative warning given to the patient. IV patency established. IV site checked: no pain, redness, or swelling. IV flushed thoroughly pre- and post-medication administration. IVP given by RN (Partial dose administered. ED physician notified.). --11:06 Delmy Orta R.N. 10:59 11/15/2016 Zofran (Ondansetron HCl) IVP 4 mg given over 2 minute(s) via site #1. Allergies verified and confirmed 5 rights. IV patency established. IV site checked: no pain, redness, or swelling. IV flushed thoroughly pre- and post-medication administration. IVP given by RN. --11:09 Delmy Orta R.N. <<STRICKEN ENTRY-- late entry - 10:35. --11:12 Delmy Orta R.N. --END STRIKE>> Correction --11:13 Delmy Orta R.N. 10:35 11/15/16. BP: 113/66. HR: 126. --11:12 Delmy Orta R.N. 11:05 11/15/2016 IV Saline Lock Drip IV Discontinued: bag #1 completed. Total amount infused: 500 mL. IV patency established. IV site checked: no pain, redness, or swelling. IV flushed thoroughly. --14:12 Delmy Orta R.N. 11:14 11/15/16. ( Correction to prior charting - Metoprolol given at 10:35, not 10:44.). --11:14 Delmy Orta R.N. 10:43 11/15/16. BP: 117/67. HR: 98. --11:15 Delmy Orta R.N. 11:17 11/15/16. ( Patient stated she was nauseated at 10:48. ED physician notified and gave verbal order for 4 mg zofran.). --11:17 Delmy Orta R.N. 11:20 11/15/2016 IV Fluids IV NS Discontinued: completed. Total amount infused: 500 mL. IV patency established. IV site checked: no pain, redness, or swelling. IV flushed thoroughly. --11:20 Delmy Orta R.N. 11:28 11/15/16. Patient transported to MI by stretcher with tech. --11:28 Delmy Orta R.N. 13:16 11/15/16. ( Patient given sandwich, snacks, and a drink.). --13:16 Delmy Orta R.N. 13:02 11/15/16. BP: 114/66. HR: 82. RR: 16. O2 saturation: 96%. Pain level now: 11/16. --13:16 Delmy Orta R.N. 13:30 11/15/2016 Morphine IVP 4 mg given. via site #1. Allergies verified, confirmed 5 rights and sedative warning given to the patient. IV patency established. IV site checked: no pain, redness, or swelling. IV flushed thoroughly pre- and post-medication administration. IVP given by RN. --13:30 Brittany Trevino R.N. 13:31 11/15/16. --13:31 Brittany Trevino R.N. 13:30 11/15/16. BP: 128/70. HR: 96. RR: 16. O2 saturation: 100% on room air. Pain level now: 11/16. --13:31 Brittany Trevino R.N. 13:34 11/15/16. ( patient has tolerated the food and water she was given. States she still has pain of 3 or 4 out of 10. Medicated with Morphine. Will cont to monitor. Patient is on continuous pulse ox and surveillance system monitor.). --13:36 Brittany Trevino R.N. DISPOSITION / DISCHARGE 14:10 11/15/16. --14:10 Delmy Orta R.N. 14:08 11/15/16. BP: 115/66. HR: 88. RR: 16. O2 saturation: 99%. Temp: deferred. Pain level now: 09/18. --14:10 Delym Orta R.N. 14:12 11/15/2016 Site #1 removed upon discharge. Manual pressure and bandaid applied. --14:12 Delmy Orta R.N. late entry - 14:40. No learning barriers present. Discharge instructions provided and reviewed with the patient and family. Reviewed warnings. Reviewed medication(s). Treatments reviewed. Reviewed referrals. Activity restrictions reviewed. Patient and family verbalized understanding. Written instructions provided in [place]. The patient was discharged by the physician. She was discharged home and accompanied by family. She left the Emergency Department in a wheelchair and via private vehicle. Family member driving. ( Patient left with daughter.). --14:55 Delmy Orta R.N. Locked/Released at 11/15/2016 15:25 by Delmy Orta R.N.
--- NOTE | 2016-11-15 14:02 | ED CLINICAL REPORT ---
Clinical Report - Physicians/Mid Levels [facility] [address] [place] [address] 11/15/2016 9:56 Patient: JESSA ADLER Time Seen: 1000. Arrived- By ambulance. Historian- patient and EMS personnel. HISTORY OF PRESENT ILLNESS Is no longer unconscious. She has recovered. Chief Complaint: SYNCOPE. It was abrupt in onset and has been intermittent. Patient was last known well (last night). This occurred last night. Event was not witnessed. At time of event, she had just stood up. The patient felt faint, lost consciousness and collapsed. The patient had preceding symptoms of light-headedness, nausea and abdominal pain. The episode was brief and lasted seconds. Location of injuries- (left hand). Currently has nausea. (reports hx of pancreatitis. states she is having another episode. Does not know cause of pancreatitis. reports no injury or trauma to the head, neck, chest, abdomen, pelvis, back, or other extremities. Reports it occured near the bed and on the carpeted floor. Does not report any head injury or pain. States she does not want a CT scan at this time of her head.). Similar symptoms previously: None. Recent medical care: Not recently seen/assessed. REVIEW OF SYSTEMS All systems otherwise negative, except as recorded above. PAST HISTORY See nurses notes. Medications: Digoxin Oral 0.25 mg, daily. Lisinopril Oral. Lomotil Oral, as needed. Lovastatin Oral. Metoprolol Tartrate Oral. Oxycodone-Acetaminophen Oral 5/325 mg, 3x a day as needed. Allergies: No Known Drug Allergy. SOCIAL HISTORY Never smoker. No alcohol use or drug use. No recent travel. Is a local resident. ADDITIONAL NOTES The nursing notes have been reviewed. PHYSICAL EXAM Vital Signs: 11/15/2016 09:59 BP: 125/66. HR: 126. RR: 14. O2 saturation: 92%. Temp: 97.4 F. Blood pressure normal. Oxygen saturation normal. Appearance: Alert. No acute distress. Eyes: Pupils equal, round and reactive to light. No nystagmus. Extraocular movements normal. ENT: Normal ENT inspection. TM's normal. Moist mucous membranes. Pharynx normal. Neck: Normal inspection. Neck supple. CVS: Abnormal rate. Abnormal rhythm. Heart sounds normal. Pulses normal. Respiratory: No respiratory distress. Breath sounds normal. Abdomen: Soft. Moderate tenderness in the epigastric area. No organomegaly. Skin: Skin warm and dry. Normal skin color. No rash. Normal skin turgor. Extremities: Extremities exhibit normal ROM. No lower extremity edema. (except for ecchymosis over the distal left hand. unable to make a complete fist. decreased ROM to the 3 and 4th digit secondary to pain. neurovasc intact. skin intact. compartments soft.). Neuro: Alert. Oriented X 3. Mood/affect normal. Speech normal. Cranial nerves normal (as tested). No cerebellar findings. No motor deficit. No sensory deficit. LABS, X-RAYS, AND EKG EKG: No acute ischemia. Atrial fibrillation (121). Normal QRS complex. Normal axis. Normal ST and T waves, QT and QTc. Prior EKG unavailable. The study has been interpreted contemporaneously by me. The study has been independently viewed by me. The EKG appears to be a good tracing. Lt Hand X-ray: (PROCEDURE: XR HAND 3 OR 4 VIEWS - LEFT INDICATION: TRAUMA/INJURY TECHNIQUE: Four views of the left hand. COMPARISON: None. FINDINGS: Periarticular osteopenia. Minimally displaced longitudinally oriented oblique fracture of the third metacarpal diaphysis. There is medial subluxation at the second DIP joint with joint space loss suggestive of chronic arthritic change. No unusual soft tissue calcifications or radiodense foreign bodies. IMPRESSION: 1. Minimally displaced third metacarpal fracture. 2. Periarticular osteopenia. 3. 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 Correlate clinically with loss of range of motion.). The X-rays were independently viewed by me and interpreted by the radiologist. The X-rays were discussed with the radiologist (via pacs and phone). Abdominal CT: PROCEDURE: CT ABDOMEN/PELVIS W/O CONTRAST INDICATION: DIARRHEA, nausea, vomiting, low abdominal pain, leukocytosis. TECHNIQUE: Axial CT images were obtained through the abdomen and pelvis without IV contrast. Coronal and sagittal reformations were created. COMPARISON: 04/20/2016 FINDINGS: Clear lung bases. Normal sized heart. Moderate mitral annular and coronary artery calcification. Very small hiatal hernia. Tiny central cysts, and punctate granuloma in the right lobe of the liver. There is new perihepatic ascites towards the dome. There are punctate calcifications in the head and uncinate process of the diminutive pancreas consistent with chronic pancreatitis. There is heavy atherosclerosis of the abdominal aorta and its branches which probably has caused right renal atrophy. There is a left renal cyst. No collecting system calcifications or hydronephrosis. There is an air-fluid level in an otherwise normal appearing stomach. The distal duodenum and proximal jejunum demonstrates diffuse circumferential mural thickening. There are no pathologically dilated small bowel loops, but small and large bowel is diffusely fluid-filled containing air fluid levels. Small amount of free fluid layers dependently in the pelvis. The appendix is present in normal-caliber. No discrete focus of inflammation. No discrete transition point to suggest obstruction. There is moderate mesenteric congestion in the right lower quadrant. The gallbladder, adrenal glands, and spleen appear normal. 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 The uterus is retroverted. The bladder is decompressed. No bulky adenopathy or suspicious pelvic mass. Osseous structures are intact. IMPRESSION: 1. Liquid stool throughout small and large bowel loops. A few of the more proximal small bowel loops demonstrate wall thickening. The right lower quadrant mesentery appears congested and there is free pelvic and perihepatic fluid. Findings suggest severe gastroenteritis, likely infectious/inflammatory, although given heavy atherosclerosis, ischemic bowel is possible, less likely given nondilated bowel loops. No evidence for bowel obstruction. 2. Evidence of chronic pancreatitis. No acute pancreatitis. 3. 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 Study type: abdomen and pelvis. The study was independently viewed by me and interpreted by the radiologist. The study was discussed with the radiologist (via pacs and phone). Laboratory Tests: UA-Culture if indicated: (ZORAIDA: 11/15/2016 10:59) ( MsgRcvd 11/15/2016 11:31) Final results Test Result Flag Units (Reference) URINE COLOR YELLOW URINE APPEARANCE CLEAR URINE GLUCOSE NEGATIVE (NEGATIVE) URINE BILIRUBIN 1+ (NEGATIVE) URINE BILIRUBIN ICTOTEST NEGATIVE (NEGATIVE) URINE KETONE TRACE (NEGATIVE) URINE SPECIFIC GRAVITY >= 1.030 (1.010-1.030) URINE PH 5.5 (5.0-8.0) URINE PROTEIN 2+ (NEGATIVE) URINE UROBILINOGEN 0.2 EU/dL (0.2-1.0) URINE NITRITE NEGATIVE (NEGATIVE) URINE BLOOD NEGATIVE (NEGATIVE) URINE LEUK ESTERASE TRACE (NEGATIVE) URINE RBC 0-1 rbc/hpf (0-1) URINE WBC 0-1 wbc/hpf (0-1) URINE EPITHELIAL CELLS 0-1 EPI/hpf (0-5) URINE BACTERIA MODERATE (2+ TO 3+) (NONE SEEN) URINE COMMENT CULTURE INDICATED 50+ HYALINE CASTS/lpfURINE CULTURES ARE SET-UP BASED ON THE FOLLOWING CRITERIA:POSITIVE NITRITEPOSITIVE LEUKOCYTE ESTERASEGREATER THAN 10 WHITE BLOOD CELLSMODERATE (2+) OR GREATER BACTERIA CBC w Diff: (ZORAIDA: 11/15/2016 10:30) ( [facility] [place] 11[place]56) Final results Test Result Flag Units (Reference) WHITE BLOOD COUNT 22.5 H K/uL (4.5-11.5) RED BLOOD COUNT 4.75 M/uL (4.00-5.20) HEMOGLOBIN 14.3 gm/dL (12.0-16.0) HEMATOCRIT 42.0 % (36.0-46.0) MEAN CELL VOLUME 89 fL (80-100) MEAN CORPUSCULAR HGB 30 pg (26-34) MEAN CORPUSCULAR HGB CONC 34 g/dL (31-37) RED CELL DISTRIBUTION WIDTH 14.6 % (11.6-14.8) PLATELET COUNT 290 K/uL (150-400) POLY % 90 H % (50-75) BAND % 2 % (0-8) LYMPH 4 L % (25-40) MONO 4 % (3-14) EOSINOPHIL % 0 % (0-4) BASOPHIL % 0 % (0-2) METAMYELOCYTE % 0 % (0-1) MYELOCYTE 0 % (0-1) OTHER CELL TYPE 0 RBC MORPHOLOGY NORMOCYTIC~~NORMOCHROMIC PT with INR: (ZORAIDA: 11/15/2016 10:30) ( [facility] [place]/15[place] 11:04) Final results Test Result Flag Units (Reference) INR 1.1 (0.8-1.2) Low Intensity Therapy: INR 1.5-2.0 PT range 18.5-23.1Mod.Intensity Therapy: INR 2.0-3.0 PT range 23.1-31.5High Intensity Therapy: INR 2.5-3.5 PT range 27.4-35.5High Intensity Therapy 2: INR 3.0-4.0 PT range 31.5-39.3 CMP: (ZORAIDA: 11/15/2016 10:30) ( MsgRcvd 11/15/2016 11:12) Final results Test Result Flag Units (Reference) GLUCOSE 149 H mg/dL (70-110) BUN 27 H mg/dL (7-18) CREATININE 1.8 H mg/dL (0.6-1.3) Estimated GFR 28.29 mL/min Estimated GFR- 34.28 mL/min Note: Persistent reduction over 3 months in eGFR<60 mL/min/1.73 m2 defines CKD. Patients with eGFR values>=60 mL/min/1.73 m2 may also have CKD if evidence ofpersistent proteinuria. Additional information may be foundat www.kidney.org. SODIUM 141 mmol/L (136-145) POTASSIUM 4.1 mmol/L (3.5-5.1) CHLORIDE 104 mmol/L (98-107) CARBON DIOXIDE 23 mmol/L (21-32) CALCIUM 9.5 mg/dL (8.5-10.1) TOTAL PROTEIN 7.2 g/dL (6.4-8.2) ALBUMIN 3.4 g/dL (3.3-5.0) BILIRUBIN, TOTAL 0.5 mg/dL (0.0-1.0) ALKALINE PHOSPHATASE 86 U/L (46-116) AST (SGOT) 14 L U/L (15-37) ALT (SGPT) 21 U/L (12-78) MAGNESIUM 1.8 mg/dL (1.8-2.4) LIPASE 165 U/L (73-393) THYROID STIMULATING HORMONE 1.494 uIU/mL (0.30-3.74) . PROGRESS AND PROCEDURES Course of Care: the patient is a pleasant 86-year-old female with past medical history significant for pancreatitis and atrial fibrillation presenting for evaluation of several medical concerns. Patient is having injury to the left hand as well as them to be as well as nausea vomiting diarrhea. Patient also with epigastric abdominal pain. Differential diagnosis at this time includes acute pancreatitis, bowel obstruction, urinary tract infection, and fracture/dislocation of the left hand. Patient will be evaluated at this time with CT scan of the abdomen and pelvis as well as electrolytes and pain medication with fluids. Patient is noted to be in A. fib with RVR. Patient was hypotensive out in the field. Patient did respond well with fluids that were given intravenously by EMS as well as 25 while here in the emergency department as well as metoprolol for the A. fib with RVR. A. fib with RVR has significantly improved the metoprolol. Patient is resting in bed and in no acute distress. Syncopal event likely due to the patient's A. fib with RVR. No other abnormalities noted on patient's workup here in the emergency department. Chest x-ray and urinalysis do not show any signs of pneumonia or urinary tract infection respectively. X-rays of the patient's hand and noted for fracture. Patient be placed in a splint. Does not appear to be needing reduction at this time. Splint was placed. Repeat examination continues to be neurovascularly intact. Discussed with patient splint care and follow-up for the hand fracture. patient's symptoms here today likely triggered from viral type of diarrheal illness with nausea and vomiting. Because the patient's known history of A. fib with RVR and likely benign type of etiology for the patient's symptoms here in the emergency department, feel that once the patient's Hypovolemia and dehydration improved with IV fluids, patient will likely do well at home. Had a discussion with the patient in regards her symptoms here in the emergency department, As well as workup, diagnosis, home care, follow-up, and return precautions. All questions have been answered. The patient expressed understanding of these instructions and was agreeable to them. Critical care performed (35 minutes). Time is exclusive of separately billable procedures. Time includes: direct patient care, patient reassessment, coordination of patient care, interpretation of data (laboratory data and chest xrays), review of patient's medical records, medical consultation and documentation of patient care. CLINICAL IMPRESSION Syncope secondary to illness .12 lead EKG performed. 11/15/2016 13:30 BP: 128/70. HR: 96. RR: 16. O2 saturation: 100%. Pain level now: 11/16. 11/15/2016 13:02 BP: 114/66. HR: 82. RR: 16. O2 saturation: 96%. Pain level now: 10. Moderate nausea with vomiting (acute). Diarrhea (acute). Blood pressure normal. Oxygen saturation normal. Chronic atrial fibrillation with controlled rate. Chronic pancreatitis. Moderate dehydration Left 3rd metacarpal fracture. INSTRUCTIONS Your Current Medications: CONTINUE TAKING THE FOLLOWING MEDICATIONS: Digoxin Oral : 0.25 mg daily. Lisinopril Oral. Lomotil Oral : prn. Lovastatin Oral. Metoprolol Tartrate Oral. Oxycodone-Acetaminophen Oral : 5/325 mg 3x a day, prn. Prescription Medications: Zofran (orally disintegrating tablets) 4 mg: take 1 orally every 8 hours as needed for nausea and vomiting. Dispense ten (10). No refill. Substitution is permissible. Percocet 5 mg/325 mg: take 1 tablet orally every 6 hours as needed for pain. Dispense twenty (20). No refill. Substitution is permissible. Follow-up: Return to the emergency department as needed. Follow up with your doctor in three days. Reason for referral: recheck today's concerns. Summary of care provided to patient via paper. Follow up with doctor. Screening today revealed the patient's blood pressure to be in the normal range. The patient should follow up with a primary care provider for blood pressure management. Understanding of the discharge instructions verbalized by patient. Follow-up with: [facility], , [address], , [place], [id number] Follow up in one week. Reason for referral: recheck your hand. Summary of care provided to patient and family via paper. (Electronically signed by Chang Maki Dr. 11/18/2016 5:20)
--- NOTE | 2016-11-18 05:20 | ED DISCHARGE INSTRUCTIONS ---
Patient: JESSA ADLER General Instructions [facility] VisitID: [id number] [address], [place] [address] 86y, F Registration Date/Time: 11/15/2016 Syncope secondary to illness .12 lead EKG performed. 11/15/2016 13:30 BP: 128/70. HR: 96. RR: 16. O2 saturation: 100%. Pain level now: 11/16. 11/15/2016 13:02 BP: 114/66. HR: 82. RR: 16. O2 saturation: 96%. Pain level now: 10. Moderate nausea with vomiting (acute). Diarrhea (acute). Blood pressure normal. Oxygen saturation normal. Chronic atrial fibrillation with controlled rate. Chronic pancreatitis. Moderate dehydration Left 3rd metacarpal fracture. INSTRUCTIONS Your Current Medications: CONTINUE TAKING THE FOLLOWING MEDICATIONS: Digoxin Oral : 0.25 mg daily. Lisinopril Oral. Lomotil Oral : prn. Lovastatin Oral. Metoprolol Tartrate Oral. Oxycodone-Acetaminophen Oral : 5/325 mg 3x a day, prn. Prescription Medications: Zofran (orally disintegrating tablets) 4 mg: take 1 orally every 8 hours as needed for nausea and vomiting. Dispense ten (10). No refill. Substitution is permissible. Percocet 5 mg/325 mg: take 1 tablet orally every 6 hours as needed for pain. Dispense twenty (20). No refill. Substitution is permissible. Follow-up: Return to the emergency department as needed. Follow up with your doctor in three days. Reason for referral: recheck today's concerns. Summary of care provided to patient via paper. Follow up with doctor. Screening today revealed the patient's blood pressure to be in the normal range. The patient should follow up with a primary care provider for blood pressure management. Understanding of the discharge instructions verbalized by patient. Follow-up with: [facility], , [address], [place], [id number] Follow up in one week. Reason for referral: recheck your hand. Summary of care provided to patient and family via paper. ADDITIONAL INFORMATION Fainting:Uncertain Cause Fainting (syncope) is a temporary loss of consciousness ("passing out"). It occurs when blood flow to the brain is reduced. Near-fainting ("near-syncope") is very similar to fainting, but you do not fully "pass out". The common minor causes of fainting include: sudden fear, pain, nausea, emotional stress and overexertion. Suddenly standing up after sitting or lying for a long time can also cause fainting. The more serious causes for fainting are due to either a very slow or very fast or very slow heart beat ("arrhythmia"), other types of heart disease, dehydration, blood loss, seizure, stroke or ruptured blood vessel in the brain. Taking too much high blood pressure medicine can also cause low blood pressure and fainting. The exact cause of your episode is not certain. However, the tests today did not show any of the serious causes of fainting. Sometimes further testing is needed to find out if a serious problem exists. Therefore, it is important that you follow-up with your doctor as advised. Home Care: 1) Rest today. You may resume your normal activities when you are feeling back to normal. It is best to remain with someone who can check on you for the next 24 hours to watch for another episode of fainting. 2) If you become light-headed or dizzy, lie down immediately or sit with your head between your knees. 3) Because we do not know the exact cause of your near fainting spell, it is possible for another spell to occur without warning. Therefore, do not drive a car or operate dangerous equipment, do not take a bath alone (use a shower instead) and do not swim alone until your doctor says that you are no longer in danger of having another fainting spell. Follow Up with your doctor as advised. Get Prompt Medical Attention if any of the following occur: -- Another fainting spell occurs, which is not explained by the common causes listed above -- Chest, arm, neck, jaw, back or abdominal pain -- Shortness of breath -- Severe headache or seizure -- Blood in vomit, stools (black or red color) -- Unexpected vaginal bleeding -- Palpitations (very rapid or very slow or irregular heart beat) -- Signs of stroke: Weakness of an arm or leg or one side of the face Difficulty with speech or vision Extreme drowsiness, confusion, dizziness or fainting Arrhythmia Electrical impulses cause the normal heart to beat 60 to 100 times a minute. These impulses come from a natural pacemaker deep inside the heart muscle. Each impulse causes the heart muscle to contract. This causes the blood to flow through the heart and out to the tissues and organs of your body. An arrhythmia is a change from the normal speed or pattern of these electrical impulses. This can cause the heart to beat too fast (tachycardia); or too slow (bradycardia); or in an unsteady pattern (irregular rhythm). Symptoms of arrhythmias Different people experience arrhythmias differently. Sometimes they may not have symptoms, but just notice a change in their pulse. Symptoms can include: Fluttering feeling in the chest Shortness of breath Chest pain or pressure Lightheadedness or dizziness Fainting or nearly fainting Palpitations Tiredness, fatigue, or weakness Causes of arrhythmias Arrhythmias are most often due to heart disease such as: Coronary artery disease (arteriosclerosis) Disease of the heart valves Enlarged heart High blood pressure Heart failure Other causes ofarrhythmia include: Certain medicines (such as asthma inhalers and decongestants) Some herbal supplements Cardiac stimulant drugs (such as cocaine, amphetamine, diet pills, certain decongestant cold medicines, caffeine, and nicotine) Excessive alcohol use Medical conditions such as thyroid disease, anemia, anxiety, and panic disorder Arrythmias can often be prevented. The cause and type of arrhythmia determines the best treatment. Sometimes your doctor may want to monitor your heart rate over a 24-hour period or longer. This can help identify the cause of your arrhythmia and find the best treatment. This can be done with a Holter monitor,a portable EKG recording device attached by wires to your chest. You can carry this with you as you perform your routine activities during the monitoring period. Home care Avoid cardiac stimulants (such as cocaine, amphetamine, diet pills, certain decongestant cold medicines, caffeine, and nicotine). If you smoke, stop smoking. Contact your doctor or a local stop-smoking program for help. Tell your doctor about any prescription, [id number] or herbal medicines you take. These may be affecting your heart rhythm. Follow-up care Follow up with your health care provider or as advised by our staff. If a Holter monitor has been recommended, contact the cardiologistyou have been referred toas soon as you canpick up the device. Other outpatient tests may also be arranged for you at that time. Call 911 This is the fastest and safest way to get to the emergency department. The paramedics can also start treatment on the way to the hospital, if needed. Don'twait until your symptoms are severe to call 911. Other reasons to call 911 besides chest pain include: Chest, shoulder, arm, neck, or back pain Shortness of breath Feeling lightheaded, faint, or dizzy Rapid heart beat Slower than usual heart rate compared to your normal Angina withweakness, dizziness, fainting, heavy sweating, nausea, or vomiting Extreme drowsiness, or confusion Weakness of an arm or leg or one side of the face Difficulty with speech or vision When to seek medical care Remember, things are not always like they are on TV. Sometimes it is not so obvious. You may only feel weak or just "not right." If it is not clear or if you have any doubt, call for advice. Seek help for chest pain, or it feels different from usual, even if your symptoms are mild. Do not drive yourself. Have someone else drive. If no one can drive you, call 911. If your doctor has given you medicines to take when you have symptoms, take them, but do not delay getting help while trying to find them. Do not delay. Fast diagnosis and treatment can prevent or limit the amount of heart damage during a heart attack or stroke. Do not go to your doctor's ofice or a clinic because they will not be able to provide all of the testing or treatment required for this condition. Pancreatitis The pancreas is an organ in the left upper abdomen that secretes digestive juices into the stomach. Pancreatitis is an inflammation of the pancreas. This may occur for various causes including heavy alcohol use, gall stone blockage of the outflow duct from the pancreas, certain medicines and viral illness. Sometimes the cause of pancreatitis cannot be found. Moderate to severe illness requires being treated in the hospital. Milder attacks of pancreatitis can be treated at home. Home Care: 1) Absolutely NO ALCOHOL. 2) Rest in bed or sit up in a chair until you feel better. 3) Eat small more frequent meals rather than a few large meals each day. 4) Follow a high protein, high carbohydrate, low fat diet. 5) If you were given medicine for pain or vomiting, take it as prescribed. Follow Up with your doctor or as directed by our staff for further evaluation. Get Prompt Medical Attention if any of the following occur: -- Continued or worsening pain in the abdomen -- Repeated vomiting: unable to keep down liquids -- Dizziness, weakness or fainting -- Vomiting blood or blood in the stool (black or red color) -- Fever over 100.4 F (38.0 C) -- Severe muscle cramps or seizure -- Trouble breathing or fast breathing (over 25 breaths/minute) -- Jaundice (yellow color of the skin or eyes) Dehydration (Adult) Dehydration occurs when your body loses too much fluid. This may be the result of vomiting a lot or from diarrhea,sweating a lot, or a high fever. It may also happen if you dont drink enough fluid when youre sick. Misuse of diuretics (water pills) can also be a cause. Symptoms include thirst and feeling dizzy, weak, fatigued, or very drowsy. The diet described below is usually enough to treat most cases. Sometimes you may needmedicine. Home Care Follow these guidelines for home care: Drink at least 12 8-ounce glasses of fluid every day to overcome the dehydration. Fluid may include water; orange juice; lemonade; apple, grape, and cranberry juice; clear fruit drinks; electrolyte replacement and sports drinks; and teas and coffee without caffeine. If you have been diagnosed with a kidney disease, ask your doctor how much and what types of fluids you should drink to prevent dehydration. If you have kidney disease, drinking too much fluid can cause it build up in the your body and be dangerous to your health. If you have fever, muscle aching, or headache from a viral syndrome, you may useacetaminophen or ibuprofen, unless another medicine was prescribed for this.If you have chronic liver or kidney disease or ever had a stomach ulcer or GI bleeding, talk with your doctor before using these medicines. Don't take aspirin if you are younger than 18 and are ill with a fever.Aspirin raises the chance forsevere liver injury. Follow-up care Follow up with your health care provider if you don't get better in the next 24 to 48 hours. When to seek medical care Get prompt medical attention if any of theseoccur: Continued vomiting (cant keep liquids down) Frequent diarrhea (more than 5 times a day); blood (red or black color) or mucus in diarrhea Blood in vomit or stool Swollen abdomen or increasing abdominal pain Weakness, dizziness, or fainting Unusually drowsy or confused Reduced urine output or extreme thirst Fever of 100.4 F (38 C) oral or higher that does not get better with fever medication Diarrhea, Uncertain Cause (Adult, Report Pending) Diarrhea has several possible causes. Commonstomach fluis caused by a virus. Food poisoning, bacteria or parasites are other causes for diarrhea. Only diarrhea caused by bacteria or parasites requires treatment with an antibiotic. Diarrhea from a virus or food poisoning improves with simple home treatment. A stool sample is needed to make the diagnosis of an infection with bacteria or parasites. Up to three stool specimens may be required to diagnose This may take up to two days to get the result. It may be necessary to wait until the stool test is complete to make the diagnosis and select the best antibiotic to prescribe. Home Care: If symptoms are severe, rest at home for the next 24 hours or until you are feeling better. You may use acetaminophen (Tylenol) or ibuprofen (Motrin, Advil) to control fever, unless another medicine was prescribed. [NOTE: If you have chronic liver or kidney disease or ever had a stomach ulcer or GI bleeding, talk with your doctor before using these medicines.] (Aspirin should never be used in anyone under 18 years of age who is ill with a fever. It may cause severe liver damage.) Avoid tobacco, caffeine and alcohol, which may worsen your symptoms. If anti-diarrhea medicine was prescribed, take this only as directed. Sometimes anti-diarrhea medicine can make your condition worse if the cause is an infectious diarrhea. Therefore, anti-diarrhea medicine should not be taken for this condition unless advised by your doctor. During The First 12-24 Hours follow the diet below: BEVERAGES: Sport drinks like Gatorade, soft drinks without caffeine; lora angela, mineral water (plain or flavored), decaffeinated tea and coffee. SOUPS: Clear broth, consomm and bouillon DESSERTS: Plain gelatin (Jell-O), popsicles and fruit juice bars. During The Next 24 Hours you may add the following to the above: Hot cereal, plain toast, bread, rolls, crackers Plain noodles, rice, mashed potatoes, chicken noodle or rice soup Unsweetened canned fruit (avoid pineapple), bananas Limit fat intake to less than 15 grams per day by avoiding margarine, butter, oils, mayonnaise, sauces, gravies, fried foods, peanut butter, meat, poultry and fish. Limit fiber; avoid raw or cooked vegetables, fresh fruits (except bananas) and bran cereals. Limit caffeine and chocolate. No spices or seasonings except salt. During The Next 24 Hours Gradually resume a normal diet, as you feel better and your symptoms lessen. Follow Up with your doctor or as advised if you are not improving over the next two days. If you were asked to bring a specimen from home, bring the sample on the day of collection. You may call in 2 days (or as directed) for the results. Get Prompt Medical Attention if any of the following occur: Increasing abdominal pain or constant lower right abdominal pain Continued vomiting (unable to keep liquids down) Frequent diarrhea (more than 5 times a day) Blood in vomit or stool (black or red color) Reduced oral intake Dark urine, reduced urine output Weakness, dizziness, fainting Drowsiness, confusion, stiff neck or seizure Fever of 100.4F (38C) oral or higher, not better with fever medication New rash Fracture:Hand [Closed] You have a fracture (break) of a bone in your hand. This may be a small crack or chip in the bone or, it may be a major break with the broken parts pushed out of position. A hand fracture is treated with a splint or cast. It usually takes 4-6 weeks to heal. Severe injuries may require surgery. Home Care: 1) Keep your arm elevated to reduce pain and swelling. When sitting or lying down elevate your arm above the level of your heart. You can do this by placing your arm on a pillow that rests on your chest or on a pillow at your side. This is most important during the first 48 hours after injury. 2) Apply an ice pack (ice cubes in a plastic bag, wrapped in a towel) over the injured area for 20 minutes every 1-2 hours the first day. You can place the ice pack inside the sling and directly over the splint/cast. Continue with ice packs 3-4 times a day for the next two days, then as needed for the relief of pain and swelling. 3) Keep the cast/splint completely dry at all times. Bathe with your cast/splint out of the water, protected with a large plastic bag, rubber-banded at the top end. If a fiberglass cast/splint gets wet, you can dry it with a hair-dryer. 4) You may use acetaminophen (Tylenol) or ibuprofen (Motrin, Advil) to control pain, unless another pain medicine was prescribed. [ NOTE : If you have chronic liver or kidney disease or ever had a stomach ulcer or GI bleeding, talk with your doctor before using these medicines.] Follow Up with your doctor within one week, or as advised by our staff, to be sure the bone is healing properly. If you were given a splint, it may be changed to a cast at your follow-up visit. [NOTE: A radiologist will review any X-rays that were taken. We will notify you of any new findings that may affect your care.] Get Prompt Medical Attention if any of the following occur: -- The plaster cast or splint becomes wet or soft -- The fiberglass cast or splint remains wet for more than 24 hours -- Increased tightness or pain under the cast or splint -- Fingers become swollen, cold, blue, numb or tingly Ondansetron Oral disintegrating tablet What is this medicine? ONDANSETRON (on KENNETH se sophy) is used to treat nausea and vomiting caused by chemotherapy. It is also used to prevent or treat nausea and vomiting after surgery. How should I use this medicine? These tablets are made to dissolve in the mouth. Do not try to push the tablet through the foil backing. With dry hands, peel away the foil backing and gently remove the tablet. Place the tablet in the mouth and allow it to dissolve, then swallow. While you may take these tablets with water, it is not necessary to do so. Talk to your psychology department chair regarding the use of this medicine in children. Special care may be needed. What side effects may I notice from receiving this medicine? Side effects that you should report to your doctor or health acute care clinical nurse specialist as soon as possible: allergic reactions like skin rash, itching or hives, swelling of the face, lips, or tongue breathing problems dizziness fast or irregular heartbeat feeling faint or lightheaded, falls fever and chills swelling of the hands and feet tightness in the chest Side effects that usually do not require medical attention (report to your doctor or health acute care clinical nurse specialist if they continue or are bothersome): constipation or diarrhea headache What may interact with this medicine? Do not take this medicine with any of the following medications: -apomorphine -cisapride -dofetilide -dronedarone -pimozide -thioridazine -ziprasidone This medicine may also interact with the following medications: -carbamazepine -phenytoin -rifampicin -tramadol -other medicines that prolong the QT interval (cause an abnormal heart rhythm) What if I miss a dose? If you miss a dose, take it as soon as you can. If it is almost time for your next dose, take only that dose. Do not take double or extra doses. Where should I keep my medicine? Keep out of the reach of children. Store between 2 and 30 degrees C (36 and 86 degrees F). Throw away any unused medicine after the expiration date. What should I tell my health care provider before I take this medicine? They need to know if you have any of these conditions: heart disease history of irregular heartbeat liver disease low levels of magnesium or potassium in the blood an unusual or allergic reaction to ondansetron, granisetron, other medicines, foods, dyes, or preservatives or trying to get breast-feeding What should I watch for while using this medicine? Check with your doctor or health acute care clinical nurse specialist as soon as you can if you have any sign of an allergic reaction. Oxycodone Hydrochloride, Acetaminophen Oral tablet What is this medicine? ACETAMINOPHEN; OXYCODONE (a set a SOY rudy fen; ox i KOE done) is a pain reliever. It is used to treat mild to moderate pain. How should I use this medicine? Take this medicine by mouth with a full glass of water. Follow the directions on the prescription label. Take your medicine at regular intervals. Do not take your medicine more often than directed. Talk to your psychology department chair regarding the use of this medicine in children. Special care may be needed. Patients over 65 years old may have a stronger reaction and need a smaller dose. What side effects may I notice from receiving this medicine? Side effects that you should report to your doctor or health acute care clinical nurse specialist as soon as possible: allergic reactions like skin rash, itching or hives, swelling of the face, lips, or tongue breathing difficulties, wheezing confusion light headedness or fainting spells severe stomach pain yellowing of the skin or the whites of the eyes Side effects that usually do not require medical attention (report to your doctor or health acute care clinical nurse specialist if they continue or are bothersome): dizziness drowsiness nausea vomiting What may interact with this medicine? alcohol antihistamines barbiturates like amobarbital, butalbital, butabarbital, methohexital, pentobarbital, phenobarbital, thiopental, and secobarbital benztropine drugs for bladder problems like solifenacin, trospium, oxybutynin, tolterodine, hyoscyamine, and methscopolamine drugs for breathing problems like ipratropium and tiotropium drugs for certain stomach or intestine problems like propantheline, homatropine methylbromide, glycopyrrolate, atropine, belladonna, and dicyclomine general anesthetics like etomidate, ketamine, nitrous oxide, propofol, desflurane, enflurane, halothane, isoflurane, and sevoflurane medicines for depression, anxiety, or psychotic disturbances medicines for sleep muscle relaxants naltrexone narcotic medicines (opiates) for pain phenothiazines like perphenazine, thioridazine, chlorpromazine, mesoridazine, fluphenazine, prochlorperazine, promazine, and trifluoperazine scopolamine tramadol trihexyphenidyl What if I miss a dose? If you miss a dose, take it as soon as you can. If it is almost time for your next dose, take only that dose. Do not take double or extra doses. Where should I keep my medicine? Keep out of the reach of children. This medicine can be abused. Keep your medicine in a safe place to protect it from theft. Do not share this medicine with anyone. Selling or giving away this medicine is dangerous and against the law. Store at room temperature between 20 and 25 degrees C (68 and 77 degrees F). Keep container tightly closed. Protect from light. This medicine may cause accidental overdose and if it is taken by other adults, children, or pets. Flush any unused medicine down the toilet to reduce the chance of harm. Do not use the medicine after the expiration date. What should I tell my health care provider before I take this medicine? They need to know if you have any of these conditions: brain tumor Crohn's disease, inflammatory bowel disease, or ulcerative colitis drink more than 3 alcohol containing drinks per day drug abuse or addiction head injury heart or circulation problems kidney disease or problems going to the bathroom liver disease lung disease, asthma, or breathing problems an unusual or allergic reaction to acetaminophen, oxycodone, other opioid analgesics, other medicines, foods, dyes, or preservatives or trying to get breast-feeding What should I watch for while using this medicine? Tell your doctor or health acute care clinical nurse specialist if your pain does not go away, if it gets worse, or if you have new or a different type of pain. You may develop tolerance to the medicine. Tolerance means that you will need a higher dose of the medication for pain relief. Tolerance is normal and is expected if you take this medicine for a long time. Do not suddenly stop taking your medicine because you may develop a severe reaction. Your body becomes used to the medicine. This does NOT mean you are addicted. Addiction is a behavior related to getting and using a drug for a non-medical reason. If you have pain, you have a medical reason to take pain medicine. Your doctor will tell you how much medicine to take. If your doctor wants you to stop the medicine, the dose will be slowly lowered over time to avoid any side effects. You may get drowsy or dizzy. Do not drive, use machinery, or do anything that needs mental alertness until you know how this medicine affects you. Do not stand or sit up quickly, especially if you are an older patient. This reduces the risk of dizzy or fainting spells. Alcohol may interfere with the effect of this medicine. Avoid alcoholic drinks. There are different types of narcotic medicines (opiates) for pain. If you take more than one type at the same time, you may have more side effects. Give your health care provider a list of all medicines you use. Your doctor will tell you how much medicine to take. Do not take more medicine than directed. Call emergency for help if you have problems breathing. The medicine will cause constipation. Try to have a bowel movement at least every 2 to 3 days. If you do not have a bowel movement for 3 days, call your doctor or health acute care clinical nurse specialist. Do not take Tylenol (acetaminophen) or medicines that have acetaminophen with this medicine. Too much acetaminophen can be very dangerous. Many nonprescription medicines contain acetaminophen. Always read the labels carefully to avoid taking more acetaminophen. You have been given the following additional information: Syncope, Unk Cause Arrhythmia, Unspecified Pancreatitis Dehydration (Adult) Diarrhea, Unk Cause (Adult) Report Pendg Fracture, Hand (Closed) Ondansetron Oral disintegrating tablet Oxycodone Hydrochloride, Acetaminophen Oral tablet (Electronically signed by Chang Maki Dr. 11/18/2016 5:20)
--- NOTE | 2016-11-18 05:21 | ED MED RECONCILIATION SUMMARY ---
Patient: JESSA ADLER Medication Reconciliation Report [facility] VisitID: [id number] [place] [address] 86y, F Registration Date/Time: 11/15/2016 Weight: 43.0 kg Height/Length: 64 in. BMI: 16.3 ALLERGIES: No Known Drug Allergy The patient's Home Medications are listed below: CONTINUE TAKING THE FOLLOWING MEDICATIONS: Digoxin Oral 0.25 mg, daily Lisinopril Oral Lomotil Oral Lovastatin Oral Metoprolol Tartrate Oral Oxycodone-Acetaminophen Oral 5/325 mg, 3x a day The source(s) of the original Home Medication information: Not obtained. The following Medications were given to the patient in the Emergency Department: Metoprolol [IVP] IVP 5 mg, administered: 11/15/2016 10:44:00 AM Morphine [IVP] IVP 2 mg, administered: 11/15/2016 10:45:00 AM IV NS IV Fluids bolus 0, then 999 mL/hr, administered: 11/15/2016 10:43:00 AM Zofran [IVP] IVP 4 mg, administered: 11/15/2016 10:59:00 AM Morphine [IVP] IVP 4 mg, administered: 11/15/2016 1:30:00 PM The following Medications were prescribed to the patient: Zofran (orally disintegrating tablets) 4 mg: take 1 orally every 8 hours as needed for nausea and vomiting. Dispense ten (10). No refill. Substitution is permissible. -- Chang Maki Dr. Percocet 5 mg/325 mg: take 1 tablet orally every 6 hours as needed for pain. Dispense twenty (20). No refill. Substitution is permissible. -- Chang Maki Dr.
--- NOTE | 2016-11-18 05:21 | ED MAR SUMMARY ---
..... Medication Administration Record [facility] [address] [place] [address] Patient: JESSA ADLER Visit ID: [id number] 86y, F Weight: 43.0 kg Height/Length: 64 in BMI: 16.3 ALLERGIES: No Known Drug Allergy Start 10:43 11/15/2016 Delmy Orta R.N., Stop 11:20 11/15/2016 Delmy Orta R.N. Medication Administered: IV NS (SALINE), Dose: IV Fluids over 30 minute(s), Rate: 999 mL/hr, Dispensed: 1000 mL bag, Site: #1 left AC. Medication Ordered: IV NS : initial bolus 500 mL (1000 mL/hr), then none - for X1 (NOW). Given 10:44 11/15/2016 Delmy Orta R.N. Medication Administered: METOPROLOL [IVP] (METOPROLOL TARTRATE), Dose: 5 mg IVP over 5 minute(s), Site: #1 left AC. Medication Ordered: Metoprolol IV 5 mg (HIGH ALERT MEDICATION, NOW). Given 10:45 11/15/2016 Delmy Orta R.N. Medication Administered: MORPHINE [IVP], Dose: 2 mg IVP over 1 minute(s), Site: #1 left AC. Medication Ordered: Morphine IV 4 mg (HIGH ALERT MEDICATION, NOW). Given 10:59 11/15/2016 Delmy Orta R.N. Medication Administered: ZOFRAN [IVP] (ONDANSETRON HCL), Dose: 4 mg IVP over 2 minute(s), Site: #1 left AC. Medication Ordered: Zofran IV 4 mg (NOW). Given 13:30 11/15/2016 Brittany Trevino R.N. Medication Administered: MORPHINE [IVP], Dose: 4 mg IVP, Site: #1 left AC. Medication Ordered: Morphine IV 4 mg (HIGH ALERT MEDICATION, NOW).
--- NOTE | 2016-11-18 05:21 | ED MAR SUMMARY ---
..... Medication Administration Record [facility] [address] [place] [address] Patient: JESSA ADLER Visit ID: [id number] 86y, F Weight: 43.0 kg Height/Length: 64 in BMI: 16.3 ALLERGIES: No Known Drug Allergy Start 10:43 11/15/2016 Delmy Orta R.N., Stop 11:20 11/15/2016 Delmy Orta R.N. Medication Administered: IV NS (SALINE), Dose: IV Fluids over 30 minute(s), Rate: 999 mL/hr, Dispensed: 1000 mL bag, Site: #1 left AC. Medication Ordered: IV NS : initial bolus 500 mL (1000 mL/hr), then none - for X1 (NOW). Given 10:44 11/15/2016 Delmy Orta R.N. Medication Administered: METOPROLOL [IVP] (METOPROLOL TARTRATE), Dose: 5 mg IVP over 5 minute(s), Site: #1 left AC. Medication Ordered: Metoprolol IV 5 mg (HIGH ALERT MEDICATION, NOW). Given 10:45 11/15/2016 Delmy Orta R.N. Medication Administered: MORPHINE [IVP], Dose: 2 mg IVP over 1 minute(s), Site: #1 left AC. Medication Ordered: Morphine IV 4 mg (HIGH ALERT MEDICATION, NOW). Given 10:59 11/15/2016 Delmy Orta R.N. Medication Administered: ZOFRAN [IVP] (ONDANSETRON HCL), Dose: 4 mg IVP over 2 minute(s), Site: #1 left AC. Medication Ordered: Zofran IV 4 mg (NOW). Given 13:30 11/15/2016 Brittany Trevino R.N. Medication Administered: MORPHINE [IVP], Dose: 4 mg IVP, Site: #1 left AC. Medication Ordered: Morphine IV 4 mg (HIGH ALERT MEDICATION, NOW).
--- NOTE | 2016-11-18 05:21 | ED MED RECONCILIATION SUMMARY ---
Patient: JESSA ADLER Medication Reconciliation Report [facility] VisitID: [id number] [place] [address] 86y, F Registration Date/Time: 11/15/2016 Weight: 43.0 kg Height/Length: 64 in. BMI: 16.3 ALLERGIES: No Known Drug Allergy The patient's Home Medications are listed below: CONTINUE TAKING THE FOLLOWING MEDICATIONS: Digoxin Oral 0.25 mg, daily Lisinopril Oral Lomotil Oral Lovastatin Oral Metoprolol Tartrate Oral Oxycodone-Acetaminophen Oral 5/325 mg, 3x a day The source(s) of the original Home Medication information: Not obtained. The following Medications were given to the patient in the Emergency Department: Metoprolol [IVP] IVP 5 mg, administered: 11/15/2016 10:44:00 AM Morphine [IVP] IVP 2 mg, administered: 11/15/2016 10:45:00 AM IV NS IV Fluids bolus 0, then 999 mL/hr, administered: 11/15/2016 10:43:00 AM Zofran [IVP] IVP 4 mg, administered: 11/15/2016 10:59:00 AM Morphine [IVP] IVP 4 mg, administered: 11/15/2016 1:30:00 PM The following Medications were prescribed to the patient: Zofran (orally disintegrating tablets) 4 mg: take 1 orally every 8 hours as needed for nausea and vomiting. Dispense ten (10). No refill. Substitution is permissible. -- Chang Maki Dr. Percocet 5 mg/325 mg: take 1 tablet orally every 6 hours as needed for pain. Dispense twenty (20). No refill. Substitution is permissible. -- Chang Maki Dr.
== END 2016-11-15 14:40 | disposition home or self-care (01) ==
LOC: ED SRH 09:52
DX: S62.303A Unspecified fracture of third metacarpal bone, left hand, initial encounter for closed fracture (principal); R11.2 Nausea with vomiting, unspecified; E86.0 Dehydration; R19.7 Diarrhea, unspecified; K86.1 Other chronic pancreatitis; I48.91 Unspecified atrial fibrillation; R55 Syncope and collapse; X58.XXXA Exposure to other specified factors, initial encounter; I10 Essential (primary) hypertension